=== PATIENT | female | born 1985 | race Caucasian/White ===

== ENCOUNTER 2020-02-17 03:43 | Inpatient (IN) | payer BC ==
[2020-02-17] MEDS ORDERED: RINGERS SOLUTION,LACTATED 1,000 ML IV ONE (03:45)
[2020-02-17] MEDS ORDERED: RINGERS SOLUTION,LACTATED 1,000 ML IV PRN (03:45)
[2020-02-17] MEDS ORDERED: OXYTOCIN/0.9 % SODIUM CHLORIDE 30 UNIT/500 ML RTUINJ IV PRN ×2 (04:19→07:17)
[2020-02-17] MEDS ORDERED: PENICILLIN G POTASSIUM 5,000,000 UNIT in DEXTROSE 5%-WATER 100 ML IV ONE (04:21)
[2020-02-17] MEDS ORDERED: OXYTOCIN 10 UNIT/ML VIAL ONE (04:24)
[2020-02-17] MEDS ORDERED: LIDOCAINE 1% INJ-PF (10 MG/ML) 30 ML SDV ONE (04:24)
[2020-02-17] MEDS ORDERED: OXYTOCIN/0.9 % SODIUM CHLORIDE 30 UNIT/500 ML RTUINJ ONE (04:24)
[2020-02-17] MEDS ORDERED: MISOPROSTOL 0.2 MG TABLET ONE (04:24)
[2020-02-17] MEDS ORDERED: PENICILLIN G-K 5 MILLION UNIT VIAL ONE (04:24)
[2020-02-17 04:34] LABS: APPEARANCE,URINE SLIGHTLY-CLOUDY; BILIRUBIN,URINE NEGATIVE (NEGATIVE); COLOR,URINE YELLOW; GLUCOSE, URINE NEGATIVE (NEGATIVE); KETONES,URINE NEGATIVE (NEGATIVE); LEUKOCYTE ESTERASE,URINE TRACE (NEGATIVE); NITRITE,URINE NEGATIVE (NEGATIVE); PROTEIN,URINE NEGATIVE (NEGATIVE); URINE SPECIFIC GRAVITY 1.013; UROBILINOGEN,URINE NEGATIVE mg/dL (<2.0)
[2020-02-17 04:36] LABS: ABSOLUTE EOSINOPHILS # (AUTO) 0.1 10^3/uL (0.0-0.6); ABSOLUTE LYMPHOCYTES (AUTO) 2.1 10^3/uL (0.5-4.7); ABSOLUTE MONOCYTES (AUTO) 0.6 10^3/uL (0.1-1.4); ABSOLUTE NEUT (AUTO) 6.1 10^3/uL (1.7-8.2); BASOPHILS % (AUTO) 0.3 % (0-2); EOSINOPHILS % (AUTO) 0.6 % (0-6); HEMATOCRIT 40.4 % (36.0-47.0); HEMOGLOBIN 14.1 g/dL (12.0-15.5); LYMPHOCYTES % (AUTO) 23.9 % (13-45); MEAN CORPUSCULAR HEMOGLOBIN 30.4 pg (27.0-33.4); MEAN CORPUSCULAR HGB CONC 34.8 g/dL (32.0-36.0); MEAN CORPUSCULAR VOLUME 87 fl (80-97); MONOCYTES % (AUTO) 6.9 % (3-13); PLATELET COUNT 234 10^3/uL (150-450); RED BLOOD COUNT 4.63 10^6/uL (3.72-5.28); RED CELL DISTRIBUTION WIDTH 17.1 % (11.5-14.0); SEGMENTED NEUTROPHILS % (AUTO) 68.3 % (42-78); TOTAL CELLS COUNTED % (AUTO) 100 %; WHITE BLOOD COUNT 8.9 10^3/uL (4.0-10.5)
[2020-02-17 04:49] LABS: URINE AMPHETAMINES SCREEN NEGATIVE; URINE BARBITURATES SCREEN NEGATIVE; URINE BENZODIAZEPINES SCREEN NEGATIVE; URINE COCAINE SCREEN NEGATIVE; URINE MARIJUANA (THC) SCREEN NEGATIVE; URINE METHADONE SCREEN NEGATIVE; URINE PHENCYCLIDINE SCREEN NEGATIVE
[2020-02-17] MEDS ORDERED: EPHEDRINE SULFATE INJ 50 MG/1 ML AMPULE ONE (04:54)
[2020-02-17] MEDS ORDERED: ROPIVACAINE HCL 0.2% INJ/PF (2 MG/ML) 20 ML SDV ONE (04:55)
[2020-02-17] MEDS ORDERED: FENTANYL/BUPIVACAINE/NS/PF 300 MCG/150 ML RTUINJ EPI ONE (04:55)
--- NOTE | 2020-02-17 05:54 | Admission Physical ---
Datetime Report Generated by CPN: 02/17/2020 05:53 CURRENT ADMISSION Chief Complaint: Uterine Contractions Indication for Induction: Not Applicable Admit Impression : Term, Intrauterine Admit Plan: Admit to Unit; Initiate Labor Protocol ALLERGIES Medication Allergies: No Medication Allergies: No Known Allergies (02/17/2020) Latex: No Latex Allergies OBSTETRICAL HISTORY EDC: 02/12/2020 00:00 : 4 Para: 2 Term: 2 : 0 SAB: 1 IAB: 0 Ectopic: 0 Livin Cesareans: 0 VBACs: 0 Multiple Births: 0 Gestational Diabetes: No Rh Sensitization: No Incompetent Cervix: No GALO: No Infertility: No ART Treatment: No Uterine Anomaly: No IUGR: No Hx Previous C/S: No Macrosomia: No Hx Loss/Stillborn: No PIH: No Hx : No Placenta Previa/Abruption: No Depression/PP Depression: No PTL/PROM: No Post Hemorrhage: No Obstetrical History Comments: G1- Girl 2013 G2- male 2014 G3- SAB G4- Current AMA SEE RECORDS Alcohol: No Marijuana : No Cocaine: No Other Illicit Drugs: No Cigarettes: Never Smoker. [id number] MEDICAL HISTORY Diabetes: No Blood Transfusion: No Pulmonary Disease (Asthma, TB): No Breast Disease: No Hypertension: No Drafter Topographical Surgery: No Heart Disease: No Hosp/Surgery: Yes Autoimmune Disorder: No Anesthetic Complications: No Kidney Disease: Yes Abnormal Pap Smear: No Neuro/Epilepsy: No Psychiatric Disorders: No Other Medical Diseases: No Hepatitis/Liver Disease: No Significant Family History: No Varicosities/Phlebitis: No Trauma/Violence : No Thyroid Dysfunction: No Medical History Comments: 2000- [place] teeth extraction, 2002- corrective eye surgery, 2006- corrective eye surgery, 2006- stent placed for kidney stones, then removed, 2018- appendectomy INFECTIOUS HISTORY Gonorrhea: No Genital Herpes: No Chlamydia: No Tuberculosis: No Syphilis: No Hepatitis: No HIV/AIDS Exposure: No Rash or Viral Illness: No HPV: No PHYSICAL EXAM General: Normal HEENT: Normal Neurologic: Normal Thyroid: Normal Heart: Normal Lungs: Normal Breast: Deferred Back: Normal Abdomen: Normal Genitourinary Exam: Normal Extremities: Normal DTRs: Normal Pelvic Type: Adequate FETUS A EGA: 40.5 PLANS FOR LABOR AND DELIVERY Labor and Delivery: None Pain Management: Epidural Feeding Preference: Breast Benefit of Breast Feed Discussed: Yes Circumcision: N/A INFORMED CONSENT Signature: with User ID: [email or web address]
[2020-02-17] MEDS ORDERED: BENZOCAINE/MENTHOL AEROSOL SPRAY 56 ML TOP PRN (07:17)
[2020-02-17] MEDS ORDERED: PROMETHAZINE HCL INJ 25 MG/1 ML VIAL IV PRN (07:17)
[2020-02-17] MEDS ORDERED: ACETAMINOPHEN 650 MG SUPP.RECT PR PRN (07:17)
[2020-02-17] MEDS ORDERED: GLYCERIN/WITCH HAZEL LEAF 1 EACH MED..WIPE TP PRN (07:17)
[2020-02-17] MEDS ORDERED: DIBUCAINE 1% OINTMENT 28 GM TP PRN (07:17)
[2020-02-17] MEDS ORDERED: ZOLPIDEM TARTRATE 5 MG TABLET PO PRN (07:17)
[2020-02-17] MEDS ORDERED: DIPH/PERTUSS(ACELL)/TETANUS VAC/PF 0.5 ML SYR (>=10YO) IM PRN (07:17)
[2020-02-17] MEDS ORDERED: DIPHENHYDRAMINE HCL 25 MG CAPSULE PO PRN (07:17)
[2020-02-17] MEDS ORDERED: MEASLES,MUMPS&RUBELLA VACC/PF 0.5 ML VIAL SUBCUT PRN (07:17)
[2020-02-17] MEDS ORDERED: NA PHOS,M-B/NA PHOS,DI-BA (ADULT) 133 ML ENEMA PR PRN (07:17)
[2020-02-17] MEDS ORDERED: PROMETHAZINE HCL 25 MG TABLET PO PRN (07:17)
[2020-02-17] MEDS ORDERED: PROMETHAZINE HCL 25 MG SUPP.RECT PR PRN (07:17)
[2020-02-17] MEDS ORDERED: PSEUDOEPHEDRINE HCL 30 MG TABLET PO PRN (07:17)
[2020-02-17] MEDS ORDERED: MAGNESIUM HYDROXIDE SUSP 30 ML UDCUP PO PRN (07:17)
[2020-02-17] MEDS ORDERED: ACETAMINOPHEN WITH CODEINE #3 TABLET PO PRN (07:17)
--- NOTE | 2020-02-17 08:39 | Birth Certificate Data ---
Cert Data Datetime Report Generated by CPDivay: 02/17/2020 08:38 CERTIFICATE DATA 47a. Care: Yes (02/17/2020 03:55:Zuleika Alcantar RN) 47b. Date of First Visit: 09/22/2019 00:00 (02/17/2020 03:55:Zuleika Alcantar RN) 47c. Date of Last Visit: 02/10/2020 00:00 (02/17/2020 03:55:Zuleika Alcantar RN) 48a. Number of Prev Live Births: 2 (02/17/2020 03:55:Zuleika Alcantar RN) 48b. Now Livin (02/17/2020 03:55:Zuleika Alcantar RN) 48c. Live Births Now : 0 (02/17/2020 03:55:QS system process) 48d. Date of Last Live : 04/01/2015 00:00 (02/17/2020 03:55:Zuleika Alcantar RN) 48e. Losses: 1 (02/17/2020 03:55:Zuleika Alcantar RN) 48f. Date of Last Preg Loss: 06/20/2018 00:00 (02/17/2020 03:55:Zuleika Alcantar RN) RISK FACTORS IN THIS 49a. Diabetes: No (02/17/2020 03:55:Jaye Patino RN) 49b. Hypertension: No (02/17/2020 03:55:Jaye Patino RN) 49c. Previous Births: 0 (02/17/2020 03:55:Zuleika Alcantar RN) 49d. Stillborns: No (02/17/2020 03:55:Jaye Patino RN) 49d. IUGR: No (02/17/2020 03:55:Jaye Patino RN) 49e. Infertility Treatment: No (02/17/2020 03:55:Jaye Patino RN) 49f. Previous Cesareans: 0 (02/17/2020 03:55:Zuleika Alcantar RN) Mother's Height 50b. Height Inches: 63 (02/17/2020 07:23:QS system process) Mother's Weight 51a. Pre- Weight (lbs): 138 (02/17/2020 03:55:Zuleika Alcantar RN) 51b. Weight at Delivery (lbs): 158 (02/17/2020 07:23:QS system process) 52. Dt Last Normal Menses Began: 05/08/2019 00:00 (02/17/2020 03:55:Zuleika Alcantar RN) Infections Present/Treated 53a. Gonorrhea: No (02/17/2020 03:55:Jaye Patino RN) Results this Hospital Visit : Negative (02/17/2020 03:55:Zuleika Alcantar RN) 53b. Syphilis: No (02/17/2020 03:55:Jaye Patino RN) 53c. Chlamydia: No (02/17/2020 03:55:Jaye Patino RN) Results this Hospital Visit: Negative (02/17/2020 03:55:Zuleika Alcantar RN) 53d. Hepatitis B: No (02/17/2020 03:55:Jaye Patino RN) Results this Hospital Visit: Negative (02/17/2020 03:55:Zuleika Alcantar RN) 53e. Hepatitis C: Negative (02/17/2020 03:55:Zuleika Alcantar RN) 53h. Mother Tested for HBsAG: Yes (02/17/2020 03:55:Zuleika Alcantar RN) 53i. Date Tested: 08/18/2019 00:00 (02/17/2020 03:55:Zuleika Alcantar RN) 53j. Test Result: Negative (02/17/2020 03:55:Zuleika Alcantar RN) Cigarette Smoking Cigarette Smoking: Never Smoker. [id number] (02/17/2020 03:55:Jaye Patino RN) 55a. 3 Months Before Preg - Ci (02/17/2020 03:55:Jaye Patino RN) 55b. 1st Trimester of Preg- Ci (02/17/2020 03:55:Jaye Patino RN) 55c. 2nd Trimester of Preg- Ci (02/17/2020 03:55:Jaye Patino RN) 55d. 3rd Trimester of Preg- Ci (02/17/2020 03:55:Jaye Patino RN) Onset of Labor 56a. PROM >12 Hrs: 3.90 (02/17/2020 03:55:QS system process) 56b. Precipitous Labor <3 Hrs: 3 (02/17/2020 03:55:QS system process) 56c. Prolonged Labor > 20 Hrs: 3 (02/17/2020 03:55:QS system process) 57a. Induction of Labor: N/A (02/17/2020 03:55:Khushbu Diehl RN) 57c. Non-Vertex Presentation A: Vertex (02/17/2020 03:55:Khushbu Diehl RN) 57d. Steroids - Lung Mat: None (02/17/2020 03:55:Khushbu Diehl RN) 57d. Steroids - Lung Mat: Not Applicable (02/17/2020 03:55:Khushbu Diehl RN) 57e. Antibiotics During Labor: 02/17/2020 04:38 (02/17/2020 03:55:Khushbu Diehl RN) 57g. Moderate/Heavy Meconium: Clear (02/17/2020 03:55:Zuleika Alcantar RN) 57h. Intolerance of Labor: N/A (02/17/2020 03:55:Khushbu Diehl RN) : N/A (02/17/2020 03:55:Khushbu Diehl RN) 57i. Epidural/Spinal Anesthesia: Epidural (02/17/2020 03:55:Khushbu Diehl RN) Method of Delivery 58a. Forceps - Unsuccessful A: N/A (02/17/2020 03:55:Khushbu Diehl RN) 58b. Vacuum - Unsuccessful A: N/A (02/17/2020 03:55:Khushbu Diehl RN) 58c. Presentation at 58c. Presentation at - A : Vertex (02/17/2020 03:55:Khushbu Diehl RN) 58c. Presentation at - A : N/A (02/17/2020 03:55:Khushbu Diehl RN) 58c. Presentation at - A : Cephalic (02/17/2020 03:55:Khushbu Diehl RN) Final Route and Method of Del 58d. Baby A Route/Delivery: Vaginal (02/17/2020 07:09:Jaye Patino RN) 58e. Trial of Labor Attempted: No (02/17/2020 03:55:Khushbu Diehl RN) 58e. Trial of Labor Attempted A: N/A (02/17/2020 03:55:Khushbu Diehl RN) 58e. Trial of Labor Attempted B: N/A (02/17/2020 03:55:Khushbu Diehl RN) Maternal Morbidity 59b. 3rd or 4th Degree Lacs: None (02/17/2020 03:55:Khushbu Diehl RN) Birthweight Baby A: 3314 (02/17/2020 03:55:Khushbu Diehl RN) 60a. Pounds : 7 (02/17/2020 03:55:QS system process) 60b. Ounces: 5 (02/17/2020 03:55:QS system process) 61. GA at Delivery Baby A: 40.5 (02/17/2020 03:55:Khushbu Diehl RN) : Full Term- 39- 40.6 Weeks (02/17/2020 03:55:QS system process) 62a. 5 Minute Baby A: 10 (02/17/2020 03:55:QS system process)
--- NOTE | 2020-02-17 08:39 | Delivery Summary ---
Del Sum A-C Datetime Report Generated by CPN: 02/17/2020 08:38 DELIVERY PERSONNEL DELIVERY PERSONNEL: [id number] Delivery Doctor:: Cholo Vargas MD Labor and Delivery Nurse:: Jaye Patino RN Labor and Delivery Nurse:: Khushbu Diehl RN Nursery Nurse:: Stacey Stewart RN MATERNAL INFORMATION Delivery Anesthesia: Epidural Medications After Delivery: Pitocin 30 Units in 500ml NS/D5W Estimated Blood Loss (ml): 100 Delivery QBL: 100 Maternal Complications: None LABOR SUMMARY EDC: 02/12/2020 00:00 No. Babies in Womb: 1 Attempted: No Labor Anesthesia: Epidural LABOR INFORMATION Reason for Induction: Not Applicable Onset of Labor: 02/17/2020 04:04 Complete Dilatation: 02/17/2020 06:51 Oxytocin: N/A Group B Beta Strep: Positive Antibiotics # of Doses: 1 Antibiotics Time of Last Dose: 02/17/2020 04:38 Name of Antibiotic Given: Penicillin Steroids Given: None Reason Steroids Not Administered: Not Applicable MEMBRANES Membranes Rupture Method: Spontaneous Rupture of Membranes: 02/17/2020 03:15 Length of Rupture (hr): 3.90 Amniotic Fluid Color: Clear Amniotic Fluid Amount: Small Amniotic Fluid Odor: Normal STAGES OF LABOR Stage 1 hr: 2 Stage 1 min: 47 Stage 2 hr: 0 Stage 2 min: 18 Stage 3 hr: 0 Stage 3 min: 3 Total Time in Labor hr: 3 Total Time in Labor min: 8 VAGINAL DELIVERY Episiotomy: None Laceration #1: None Laceration Extension #1: N/A Initial Vag Sponge Count: N/A Final Vag Sponge Count: N/A Initial Vag Sharps Count: N/A Final Vag Sharps Count: N/A Sponge Count Correct: N/A CSECTION DELIVERY Primary Indication: N/A Secondary Indication: N/A CSection Incision: N/A BABY A INFORMATION Infant Delivery Date/Time: 02/17/2020 07:09 Method of Delivery: Vaginal Nurse Controlled Delivery: No Born in Route : No : N/A Forceps: N/A Vacuum Extraction: N/A Shoulder Dystocia : No PRESENTATION/POSITION BABY A Presentation: Cephalic Cephalic Presentation: Vertex Vertex Position: Left Occipital Anterior Breech Presentation: N/A PLACENTA INFORMATION BABY A Placenta Delivery Time : 02/17/2020 07:12 Placenta Method of Delivery: Spontaneous Placenta Status: Delivered SCORES BABY A Heart Rate 1 min: >100 bpm Resp Effort 1 min: Good Cry Reflex Irritability 1 min: Cough or Sneeze or Pulls Away Muscle Tone 1 min: Active Motion Color 1 min: Body [place], Extremities Blue SCORE 1 MIN: 9 Heart Rate 5 min: >100 bpm Resp Effort 5 min: Good Cry Reflex Irritability 5 min: Cough or Sneeze or Pulls Away Muscle Tone 5 min: Active Motion Color 5 min: Completely [place] SCORE 5 MIN: 10 Resuscitation Effort 10 min: N/A INFORMATION BABY A Gestational Age at Delivery: 40.5 Gestational Status: Full Term- 39- 40.6 Weeks Outcome : Liveborn Infant Condition : Stable Infant Sex: Female IDENTIFICATION BABY A Verification Date/Time: 02/17/2020 07:15 ID Band Number: [id number] Mother's Name Verified: Yes RN Verifying Infant: Cassi MercerBENNY gates Additional Verifying Personnel: Yesika Diehl RN WEIGHT/LENGTH BABY A Birthweight (gm): 3314 Infant Weight (lb): 7 Infant Weight (oz): 5 Length (in): 20.00 Infant Length (cm): 50.80 CORD INFORMATION BABY A No. Cord Vessels: 3 Nuchal Cord : Around Neck x1, Loose Cord Blood Taken: Yes-For Eval (Mom's Blood Type - or O+) Infant Suction: None ASSESSMENT BABY A Infant Complications: None Physical Findings at Delivery: Within Normal Limits Respirations: Appears Normal Skin to Skin: Yes Hotel Front Office Manager/ALS Called : No Transferred To: Remains with Mother BABY B INFORMATION : N/A SIGNATURES Signature: with User ID: [email or web address]
[2020-02-17] MEDS: PENICILLIN G POTASSIUM 2,500,000 UNIT in DEXTROSE 5%-WATER 50 ML IV SCH ×2 (10:21→12:25)
[2020-02-17] MEDS: PRENATAL VITAMIN W DHA CAPSULE PO SCH (12:24)
[2020-02-17] MEDS: DOCUSATE SODIUM 100 MG CAPSULE PO SCH ×2 (12:24→17:57)
[2020-02-17] MEDS: FERROUS SULFATE 325 MG TABLET PO SCH ×2 (12:24→17:57)
[2020-02-17] MEDS: SENNOSIDES/DOCUSATE 8.6-50 MG 1 EACH TABLET PO SCH (12:24)
[2020-02-17] MEDS: FAMOTIDINE 20 MG TABLET PO SCH ×2 (12:24→22:45)
[2020-02-17] MEDS: IBUPROFEN 800 MG TABLET PO SCH ×2 (14:17→22:45)
[2020-02-18] MEDS: IBUPROFEN 800 MG TABLET PO SCH ×3 (05:32→21:13)
[2020-02-18 07:43] LABS: HEMATOCRIT 38.6 % (36.0-47.0); HEMOGLOBIN 13.5 g/dL (12.0-15.5); MEAN CORPUSCULAR HEMOGLOBIN 30.9 pg (27.0-33.4); MEAN CORPUSCULAR HGB CONC 34.9 g/dL (32.0-36.0); MEAN CORPUSCULAR VOLUME 89 fl (80-97); PLATELET COUNT 216 10^3/uL (150-450); RED BLOOD COUNT 4.36 10^6/uL (3.72-5.28); RED CELL DISTRIBUTION WIDTH 16.5 % (11.5-14.0)
[2020-02-18] MEDS: DOCUSATE SODIUM 100 MG CAPSULE PO SCH ×2 (12:28→17:35)
[2020-02-18] MEDS: FERROUS SULFATE 325 MG TABLET PO SCH ×2 (12:28→17:35)
[2020-02-18] MEDS: PRENATAL VITAMIN W DHA CAPSULE PO SCH (12:28)
[2020-02-18] MEDS: FAMOTIDINE 20 MG TABLET PO SCH ×2 (12:28→21:13)
[2020-02-18] MEDS: SENNOSIDES/DOCUSATE 8.6-50 MG 1 EACH TABLET PO SCH (12:28)
[2020-02-19] MEDS: IBUPROFEN 800 MG TABLET PO SCH ×2 (05:36→13:17)
[2020-02-19 08:31] VITALS: BP 104/66
[2020-02-19] MEDS: FERROUS SULFATE 325 MG TABLET PO SCH (09:40)
[2020-02-19] MEDS: FAMOTIDINE 20 MG TABLET PO SCH (09:40)
[2020-02-19] MEDS: PRENATAL VITAMIN W DHA CAPSULE PO SCH (09:40)
[2020-02-19] MEDS: SENNOSIDES/DOCUSATE 8.6-50 MG 1 EACH TABLET PO SCH (09:40)
[2020-02-19] MEDS: DOCUSATE SODIUM 100 MG CAPSULE PO SCH (09:40)
--- NOTE | 2020-02-19 11:45 | PDOC DISCHARGE SUMMARY ---
Impression - Admit/DC Date/PCP Admission Date/Primary Care Provider: 02/17/20 03:43 DELANEY SILVA MD Discharge Date: 02/19/20 - PP Day #2, doing well, no issues, O+, Rubella Immune, - Discharge Diagnosis (1) (normal spontaneous vaginal delivery) Is this a current diagnosis for this admission?: Yes (2) Normal course Is this a current diagnosis for this admission?: Yes - Additional Information Resuscitation Status: Full Code Discharge Diet: As Tolerated Discharge Activity: Activity As Tolerated, No Lifting Over 10 Pounds, Pelvic Rest Referrals: DELANEY SILVA MD [Primary Care Provider] - Prescriptions: Ibuprofen [Motrin 800 mg Tablet] 800 mg PO Q8 #60 tablet Home Medications: 95/Iron Fum/Folic/Dha [ + Dha Combo Pack] 1 tab PO DAILY 02/17/20 Ibuprofen [Motrin 800 mg Tablet] 800 mg PO Q8 #60 tablet 02/19/20 HPI Reason(s) for Admission: Onset of Labor Procedures: Ultrasound Intrapartum Procedure(s): Spontaneous Vaginal Delivery Hospital Course 59. Maternal Morbidity (serious complications experinced by the mother associated with labor and delivery: None of the above Results Laboratory Results: WBC 10.0 10^3/uL (4.0-10.5) 02/18/20 07:11 RBC 4.36 10^6/uL (3.72-5.28) 02/18/20 07:11 Hgb 13.5 g/dL (12.0-15.5) 02/18/20 07:11 Hct 38.6 % (36.0-47.0) 02/18/20 07:11 MCV 89 fl (80-97) 02/18/20 07:11 MCH 30.9 pg (27.0-33.4) 02/18/20 07:11 MCHC 34.9 g/dL (32.0-36.0) 02/18/20 07:11 RDW 16.5 % (11.5-14.0) H 02/18/20 07:11 Plt Count 216 10^3/uL (150-450) 02/18/20 07:11 Lymph % (Auto) 23.9 % (13-45) 02/17/20 04:08 [place] % (Auto) 6.9 % (3-13) 02/17/20 04:08 Eos % (Auto) 0.6 % (0-6) 02/17/20 04:08 Baso % (Auto) 0.3 % (0-2) 02/17/20 04:08 Absolute Neuts (auto) 6.1 10^3/uL (1.7-8.2) 02/17/20 04:08 Absolute Lymphs (auto) 2.1 10^3/uL (0.5-4.7) 02/17/20 04:08 Absolute Monos (auto) 0.6 10^3/uL (0.1-1.4) 02/17/20 04:08 Absolute Eos (auto) 0.1 10^3/uL (0.0-0.6) 02/17/20 04:08 Absolute Basos (auto) 0.0 10^3/uL (0.0-0.2) 02/17/20 04:08 Seg Neutrophils % 68.3 % (42-78) 02/17/20 04:08 Urine Color YELLOW 02/17/20 03:54 Urine Appearance SLIGHTLY-CLOUDY 02/17/20 03:54 Urine pH 6.0 (5.0-9.0) 02/17/20 03:54 Ur Specific [place] 1.013 02/17/20 03:54 Urine Protein NEGATIVE mg/dL (NEGATIVE) 02/17/20 03:54 Urine Glucose (UA) NEGATIVE mg/dL (NEGATIVE) 02/17/20 03:54 Urine Ketones NEGATIVE mg/dL (NEGATIVE) 02/17/20 03:54 Urine Blood MODERATE (NEGATIVE) H 02/17/20 03:54 Urine Nitrite NEGATIVE (NEGATIVE) 02/17/20 03:54 Urine Bilirubin NEGATIVE (NEGATIVE) 02/17/20 03:54 Urine Urobilinogen NEGATIVE mg/dL (<2.0) 02/17/20 03:54 Ur Leukocyte Esterase TRACE (NEGATIVE) H 02/17/20 03:54 Urine Ascorbic Acid NEGATIVE (NEGATIVE) 02/17/20 03:54 Membranes Rupture POSITIVE (NEGATIVE) H 02/17/20 04:09 Urine Opiates Screen NEGATIVE 02/17/20 03:54 Urine Methadone Screen NEGATIVE 02/17/20 03:54 Ur Barbiturates Screen NEGATIVE 02/17/20 03:54 Ur Phencyclidine Scrn NEGATIVE 02/17/20 03:54 Ur Amphetamines Screen NEGATIVE 02/17/20 03:54 U Benzodiazepines Scrn NEGATIVE 02/17/20 03:54 Urine Cocaine Screen NEGATIVE 02/17/20 03:54 U Marijuana (THC) Screen NEGATIVE 02/17/20 03:54 RPR NONREACTIVE (NONREACTIVE) 02/17/20 04:08 Blood Type O POSITIVE 02/17/20 04:08 Antibody Screen NEGATIVE 02/17/20 04:08 Plan Plan of Treatment: d/c home, f/up with [facility] in 4 wks for PP check Time Spent: Less than 30 Minutes
== END 2020-02-19 13:15 | disposition home or self-care (01) | DRG 807 ==
LOC: LR 03:43 → 2S 10:38
PROVIDERS: ADMIT Obstetrics & Gynecology Gynecology; ATTEND Obstetrics & Gynecology Gynecology
PROC: 10E0XZZ Delivery of Products of Conception, External Approach (ICD-10-PCS; principal; 2020-02-17)
DX: O99.824 Streptococcus B carrier state complicating childbirth (principal); Z37.0 Single live birth; O69.81X0 Labor and delivery complicated by cord around neck, without compression, not applicable or unspecified; Z03.818 Encounter for observation for suspected exposure to other biological agents ruled out; Z88.7 Allergy status to serum and vaccine; Z3A.40 40 weeks gestation of pregnancy
CPT/HCPCS: 1967; 36415; 80307; 81005; 84112; 85025; 85027; 86592; 86850; 86900; 86901; 94760; J2540; J2590; J2795; J3010; J3490; J7060